=== PATIENT | male | born 1990 | race Caucasian/White ===

== ENCOUNTER 2016-11-03 10:06 | Emergency (ER) | payer SELFPAY ==
--- NOTE | ~2016-11-03 | ER ---
PATIENT'S NAME: BENNY [facility] AGE: 26 Y [address] ROOM: [place] [address] LOCATION: [facility] ADMIT DATE: 11/03/2016 ER/Outpatient Report DISCHARGE DATE: 11/03/2016 FAMILY PHYSICIAN: Physician, Unknown ATTENDING PHYSICIAN: Deepthi Keys Time of Arrival: 1006 hours. Time of Evaluation/Seen: 1015 hours. IDENTIFICATION: A 26-year-old male. CHIEF COMPLAINT: Left hand injury. HISTORY OF PRESENT ILLNESS: The patient is a 26-year-old male who was using a camp program director when he reached down and the tips of his fingers were caught in the camp program director blade on the left hand. No other injury. PAST MEDICAL HISTORY: ALLERGIES: NO KNOWN DRUG ALLERGIES. MEDICATIONS: No current medications. MEDICAL PROBLEMS: Denies. PAST SURGICAL HISTORY: No prior surgeries or hospitalizations. Tetanus is current as of 7th grade which is greater than 5 years, but less than 10. SOCIAL HISTORY: The patient lives here in [place]. He works doing construction. Tobacco use; 1/2 to 1 pack per day for 7 to 8 years. Alcohol use; socially. Drug use; the patient denies. Old records reflect a history of crack cocaine and methamphetamine use as recently as April. FAMILY HISTORY: No pertinent family history identified. REVIEW OF SYSTEMS: [facility] AGE: 26 Y [address] ROOM: [place] [address] LOCATION: [facility] ADMIT DATE: 11/03/2016 ER/Outpatient Report DISCHARGE DATE: 11/03/2016 FAMILY PHYSICIAN: Physician, Unknown ATTENDING PHYSICIAN: Deepthi Keys Systems reviewed and negative other than what is noted in the HPI. PHYSICAL EXAMINATION: VITAL SIGNS: Weight 90 kg. Pulse 89, respiratory rate is 20, and saturations 99%. GENERAL: A 26-year-old male in obvious distress. HEENT: Unremarkable. LUNGS: Clear to auscultation. HEART: Regular rate and rhythm. ABDOMEN: Soft, nondistended. SKIN: [place], warm, and dry. The patient has distal amputation of his 3rd and 2nd fingers just the tip. Second finger is minimal at just the tip. No active bleeding. No nail involvement, and no exposure of bone. Left 3rd finger, a little more than the 2nd, but it is still just the tip. No active bleeding. No bony involvement and the nail is intact. He has full range of motion. Sensation is intact. IMAGING STUDIES: Left hand x-ray; soft tissue injury visible. No acute fracture or dislocation. EMERGENCY DEPARTMENT COURSE: The patient was given fentanyl for pain control. Digital block with 1% lidocaine. No epinephrine to the left 3rd and 2nd fingers. The wounds were irrigated, cleansed, and dressing was applied with antibiotic ointment, Telfa, and tube gauze. Fentanyl was given for pain control, Ancef 1 g for antibiotic, and tetanus was boosted. IMPRESSION AND PLAN: Distal tip amputation 2nd and 3rd fingers, left hand. The patient is right handed. Keflex 500 mg t.i.d. for 7 days. [place] 5/325, 1 to 2 p.o. q.4-6 hours p.r.n. pain, dispensed 15 with 0 refills. Leave dressings in place until recheck tomorrow. Elevate. Tylenol or Advil for pain. [place] 5/325, 1 to 2 p.o. q.4-6 hours p.r.n. pain, dispensed 15. Follow up with Dr. Mckeon in 1 day. Follow up sooner if any problems or concerns. The patient understands and agrees, and all questions have been answered. DEEPTHI KEYS MD CAR/modl PATIENT'S NAME: JENNIFER ZAPATA [facility] AGE: 26 Y [address] ROOM: [place] [address] LOCATION: [facility] ADMIT DATE: 11/03/2016 ER/Outpatient Report DISCHARGE DATE: 11/03/2016 FAMILY PHYSICIAN: Physician, Unknown ATTENDING PHYSICIAN: Deepthi Keys /[id number] d: 11/03/16 1529 t: 11/09/16 1013, OUTPATIENT REPORT
== END 2016-11-03 11:35 | disposition disaster alternative care site (69) ==
LOC: GACC 10:06
PROC: 3E0T3BZ Introduction of Anesthetic Agent into Peripheral Nerves and Plexi, Percutaneous Approach (ICD-10-PCS; principal; 2016-11-03)
DX: S68.113A Complete traumatic metacarpophalangeal amputation of left middle finger, initial encounter (principal); S68.111A Complete traumatic metacarpophalangeal amputation of left index finger, initial encounter; F17.210 Nicotine dependence, cigarettes, uncomplicated; Z23 Encounter for immunization; W30.89XA Contact with other specified agricultural machinery, initial encounter
CPT/HCPCS: J0690; J3010

== ENCOUNTER 2016-11-05 12:06 | Emergency (ER) | payer SELFPAY ==
--- NOTE | ~2016-11-05 | ER ---
PATIENT'S NAME: JENNIFER ZAPATA [facility] AGE: 26 Y [address] ROOM: [place] [address] LOCATION: [facility] ADMIT DATE: 11/05/2016 ER/Outpatient Report DISCHARGE DATE: FAMILY PHYSICIAN: PHYSICIAN, NO ATTENDING PHYSICIAN: Rene Baron TIME OF ARRIVAL: 12:16. TIME OF EXAM: 12:21. CHIEF COMPLAINT: Dressing change. HISTORY OF PRESENT ILLNESS: The patient states he was seen here on 11/03. He got the tip of the 3rd and 4th fingers cut off from a lawnmower accident. Dressings were applied. He was scheduled to go to [facility] on 11/04 to have the fingers re- evaluated. He states he could not afford the office call and is scheduled to go to [facility] on Tuesday, 11/09, but he was concerned that he needed to have the dressing changed prior to that appointment. He does have some discomfort, but has not had any drainage from it. ALLERGIES: NO KNOWN ALLERGIES. MEDICATIONS: No current medications. However, he was scheduled to be on an antibiotic; and he was given a prescription for [place] two days ago. His tetanus was also updated at that time. PAST MEDICAL HISTORY: Benign. PAST SURGERIES: Negative. SOCIAL HISTORY: He does smoke a pack per day and has for the last few years. Drinks alcohol on a social basis. Does have a history of meth abuse. REVIEW OF SYSTEMS: All negative other than those mentioned in the HPI. PATIENT'S NAME: JENNIFER ZAPATA [facility] AGE: 26 Y [address] ROOM: [place] [address] LOCATION: [facility] ADMIT DATE: 11/05/2016 ER/Outpatient Report DISCHARGE DATE: FAMILY PHYSICIAN: PHYSICIAN, NO ATTENDING PHYSICIAN: Rene Baron PHYSICAL EXAMINATION: VITAL SIGNS: He weighs 90.8 kg. Blood pressure is 131/70, pulse 91, respirations 16, temperature of 97.4, O2 saturations 97% on room air. GENERAL: He is awake, alert, and oriented x4. SKIN: [place], warm, and dry. RESPIRATIONS: Even and nonlabored. Lung sounds are clear throughout. HEART: Regular rate and rhythm. EMERGENCY DEPARTMENT COURSE: Dressings were removed from the left 3rd and 4th fingers. No increased drainage at the site. The site of the avulsion is clean. Nail beds are pink with less than 3-second bacilio. He has good sensation to the tips of his fingers. Hands were washed, and then fingers were re-dressed. IMPRESSION: Avulsion to the left 3rd and 4th fingers, required a dressing change. PLAN: Home and rest. Keep them clean and dry. He can change them as needed. Changing them on a daily basis would be good. Tylenol or ibuprofen for discomfort. He is to continue the antibiotics as prescribed. He verbalized understanding. MILAN MELENDEZ APRN FOR MD FRED LOPEZ/mary /[id number] d: 11/05/16 2157 t: 11/15/16 0710, OUTPATIENT REPORT
== END 2016-11-05 13:00 | disposition disaster alternative care site (69) ==
LOC: GMED 12:06
DX: S61.203A Unspecified open wound of left middle finger without damage to nail, initial encounter (principal); S61.205A Unspecified open wound of left ring finger without damage to nail, initial encounter; F17.210 Nicotine dependence, cigarettes, uncomplicated; W28.XXXA Contact with powered lawn mower, initial encounter